=== PATIENT | female | born 1985 | race Caucasian/White ===

== ENCOUNTER → 2016-12-03 | Outpatient (CLI) | payer OTHER ==
[~2016-12-03] MED LIST: BCPILLS; CLXOPO; DRV100; LEVO25TA5 PO; OXYC-57 PO; PRENCAP38 PO
[2016-12-03 17:30] LABS: HEMATOCRIT 36.4 % (37-47)
[2016-12-03 17:59] LABS: GTGD 50 Grams
[2016-12-03 18:19] LABS: URINE APPEARANCE CLOUDY (CLEAR); URINE BILIRUBIN NEG (NEG); URINE COLOR YELLOW; URINE EPITHELIAL CELL AUTO >30 /lpf (0-5); URINE NITRITE NEG (NEG); URINE SPECIFIC GRAVITY 1.008 (1.000-1.030); UROBILINOGEN NEG (NEG)
[2016-12-03 18:22] LABS: MANUAL MICROSCOPIC REQUIRED? NO; REVIEW REQ? NO
== END | disposition home or self-care (01) ==
LOC: C.LAB1850 16:09
PROVIDERS: ATTEND Obstetrics & Gynecology
DX: O99.280 Endocrine, nutritional and metabolic diseases complicating pregnancy, unspecified trimester (principal)

== ENCOUNTER → 2016-12-11 | Outpatient (CLI) | payer OTHER | END | disposition home or self-care (01) | LOC: C.LAB1850 08:36 | PROVIDERS: ATTEND Obstetrics & Gynecology | DX: O28.1 Abnormal biochemical finding on antenatal screening of mother (principal) ==

== ENCOUNTER → 2017-02-03 | Outpatient (CLI) | payer OTHER | END | disposition home or self-care (01) | LOC: C.LABSPEC 11:25 | PROVIDERS: ATTEND Obstetrics & Gynecology | DX: O09.812 Supervision of pregnancy resulting from assisted reproductive technology, second trimester (principal) ==

== ENCOUNTER 2017-03-04 03:23 | Inpatient (IN) | payer OTHER ==
[~2017-03-04] VITALS: Ht 170.2 cm; Wt 71.0 kg
[~2017-03-04 03:23] MED LIST changes: -LEVO25TA5 PO; -PRENCAP38 PO
[2017-03-04] MEDS ORDERED: LACTATED RINGER'S 1000ML 1,000 ML IV PRN (03:43)
[2017-03-04 04:39] LABS: HEMATOCRIT 38.7 % (37-47); MEAN CELL VOLUME 86.4 fL (80-100); MEAN CORPUSCULAR HEMOGLOBIN 28.8 pg (25-34); MEAN CORPUSCULAR HGB CONC 33.3 g/dl (32-36); PLATELET COUNT 147 K/uL (130-400); RED BLOOD COUNT 4.48 M/uL (4.2-5.4); WHITE BLOOD COUNT 12.98 K/uL (4.8-10.8)
[2017-03-04] MEDS ORDERED: NALOXONE HCL INJ 1 MG in SODIUM CHLORIDE 0.9% 1000ML 1,000 ML IV PRN (04:46)
[2017-03-04] MEDS ORDERED: LACTATED RINGER'S 1000ML 500 ML IV PRN ×2 (04:46→08:06)
[2017-03-04] MEDS ORDERED: FENTANYL CITRATE INJ 50 MCG/1 ML 2 ML VIAL ONE (04:51)
[2017-03-04] MEDS ORDERED: FENTANYL 2MCG/ML ROPIV 1.25MG/ML 100ML BAG EPI ONE (04:51)
[2017-03-04] MEDS ORDERED: EpHEDrine SULFATE INJ 50 MG/ML AMP ONE (04:51)
[2017-03-04] MEDS ORDERED: BUPIVACAINE 0.25% 30 ML VIAL ONE (04:51)
[2017-03-04] MEDS: LACTATED RINGER'S 1000ML 1,000 ML IV SCH ×3 (04:56→15:11)
[2017-03-04] MEDS ORDERED: NALBUPHINE HCL INJ 10 MG/ML AMP IV PRN (05:00)
[2017-03-04] MEDS ORDERED: EpHEDrine SULFATE INJ 50 MG/ML AMP IV PRN (05:00)
[2017-03-04] MEDS ORDERED: ONDANSETRON INJ 2 MG/ML 2 ML VIAL IV PRN (05:00)
[2017-03-04] MEDS ORDERED: NALOXONE HCL INJ 0.4 MG/1 ML VIAL/CARP IV PRN (05:00)
[2017-03-04] MEDS ORDERED: DiphenhydrAMINE HCL 50 MG/ML VIAL IV PRN (05:00)
[2017-03-04] MEDS: FENTANYL 2MCG/ML ROPIV 1.25MG/ML 100ML BAG EPI PRN ×3 (05:14→12:23)
[2017-03-04] MEDS ORDERED: LEVO25TA5 PO (05:36)
[2017-03-04] MEDS ORDERED: PRENCAP38 PO (05:36)
[2017-03-04 05:42] VITALS: Ht 170.2 cm; Wt 71.0 kg
[2017-03-04] MEDS ORDERED: OXYTOCIN 30 UNITS/500ML NSS IV PRN ×2 (08:15→16:00)
[2017-03-04] MEDS ORDERED: LACTATED RINGER'S 1000ML 1,000 ML IV SCH (15:51)
[2017-03-04] MEDS ORDERED: MISOPROSTOL 200 MCG TAB ONE (15:51)
[2017-03-04] MEDS ORDERED: ACETAMINOPHEN/CODEINE 300/30MG TAB PO PRN ×2 (16:00)
[2017-03-04] MEDS ORDERED: LANOLIN OINT EXT PRN ×2 (16:00)
[2017-03-04] MEDS ORDERED: MISOPROSTOL 200 MCG TAB PR SCH (16:00)
[2017-03-04] MEDS ORDERED: ACETAMINOPHEN 325 MG TAB PO PRN (16:00)
[2017-03-04] MEDS ORDERED: BENZOCAINE 20% AER SPR 82.5 GM CAN EXT PRN (16:00)
[2017-03-04] MEDS ORDERED: HYDROCORTISONE ACETATE 25 MG SUPP PR PRN (16:00)
[2017-03-04] MEDS ORDERED: SUPERCREAM 0.870 % 15GM JAR EXT PRN (16:00)
[2017-03-04] MEDS ORDERED: DIPHTHERIA/TETANUS/PERTUSSIS 0.5 ML SYR/VIAL IM. ONE (16:00)
[2017-03-04] MEDS: IBUPROFEN 600 MG TAB PO PRN (17:28)
--- NOTE | 2017-03-04 17:54 | Anesthesia Procedure Note ---
Anesthesia Epidural Removal Nt Date & Time Mar 04, 2017 at 17:53 Vital Signs Pain Intensity: 0.0 Notes Mental Status: alert / awake / arousable, participated in evaluation Nausea / Vomiting: adequately controlled Pain: adequately controlled Airway Patency, RR, SpO2: stable & adequate BP & HR: stable & adequate Hydration State: stable & adequate Neuraxial Anesthesia: was administered Anesthetic Complications: no major complications apparent, pt satisfied with anesthetic care Epidural: removed without complications, with tip intact
--- NOTE | 2017-03-04 18:24 | DELIVERY SUMMARY ---
DATE OF OPERATION: 03/04/2017 PREOPERATIVE DIAGNOSES: 1. Mcbride intrauterine at term. 2. Onset of labor. 3. Group B strep negative. POSTOPERATIVE DIAGNOSES: Same. PROCEDURE: Spontaneous vaginal delivery and repair of second degree perineal laceration. SURGEON: Dr. Maldonado. NETWORK SECURITY CONSULTANT: None. ESTIMATED BLOOD LOSS: 600 mL. COMPLICATIONS: None. DISPOSITION: Stable to labor and delivery. DESCRIPTION: Nubia is a 32-year-old who presented for my partner Dr. Maurer and I assumed care of the patient at 08:30 in the morning on 03/04/2017. The patient was in labor and had already been artificially ruptured by Dr. Maurer. Pitocin had already been ordered and was started. The patient made progress from 7 cm on admission to completely dilated and then was urged to push with coaching from her nurse. She did bring the head to , at which point I was called for delivery. With delivery of the head, there was no nuchal cord. The shoulders delivered easily followed by the remainder of the infant, which was male and vigorous. The male infant was placed on the maternal abdomen. Cord was doubly clamped and cut by the father of the baby. Cord blood was collected and the placenta delivered spontaneously and was intact with a 3-vessel cord. A second degree perineal laceration, which included the skin of the anus but neither the rectal mucosa nor the anal sphincter were disrupted, was repaired in the normal fashion using Vicryl suture in a running locked manner with a crown suture for rebuilding the perineal body and the subcuticular finish on the perineal skin. The fundus was very firm and very far below the umbilicus to go to 4-5 cm; however, the bleeding was brisk and this continued despite fundal on bimanual massage, therefore 800 mcg of rectal Cytotec was given, which did bring about significant improvement in the patient's vaginal bleeding. At the present time, she is in stable condition with a firm fundus and minimal lochia and her infant is in the nursery for observation at present due to poor tone noted at the 5 minute . I attest to the content of the Intraoperative Record and any orders documented therein. Any exceptio ns are noted below.
[2017-03-04 19:01] LABS: BASO % 0.1 %; BASO ABS # 0.01 K/uL (0-0.2); COMPLETE YES; HEMATOCRIT 32.3 % (37-47); IG% 0.3 %; LYMPH % 8.1 %; LYMPH ABS # 1.47 K/uL (1.2-3.4); MEAN CELL VOLUME 86.6 fL (80-100); MEAN CORPUSCULAR HEMOGLOBIN 28.7 pg (25-34); MEAN CORPUSCULAR HGB CONC 33.1 g/dl (32-36); MEAN PLATELET VOLUME 12.2 fL (7.4-10.4); MONO % 8.2 %; NEUT % 83.3 %; PLATELET COUNT 145 K/uL (130-400); RED BLOOD COUNT 3.73 M/uL (4.2-5.4); WHITE BLOOD COUNT 18.11 K/uL (4.8-10.8)
[2017-03-04 19:21] LABS: BUN/CREATININE RATIO 9.1 (10-20); CALCIUM 8.2 mg/dl (8.5-10.1); CREATININE 1.4 mg/dl (0.60-1.20); POTASSIUM 4.1 mmol/L (3.5-5.1)
[2017-03-04 19:23] LABS: ALB/GLOB RATIO 0.6 (0.9-2)
[2017-03-04 20:00] VITALS: BP 118/73; PULSE 98; TEMP 36.8
[2017-03-04] MEDS: DOCUSATE SODIUM 100 MG CAP PO SCH (20:35)
[2017-03-05 00:15] VITALS: BP 105/70; PULSE 66; TEMP 36.6; O2SAT 99
[2017-03-05] MEDS: IBUPROFEN 600 MG TAB PO PRN ×3 (03:09→16:44)
[2017-03-05 03:15] VITALS: BP 125/85; PULSE 59; TEMP 36.5; O2SAT 98
--- NOTE | 2017-03-05 06:57 | Progress Note ---
Subjective Mar 05, 2017. Subjective conversation w/ patient, physical exam Ambulation: ambulating normally Voiding: no voiding problems Passing Gas: Yes Diet Tolerance: Regular Diet Lochia: Moderate Feeding Type: Breast Feeding Pain: 4/10 improves with medication Comment: Patient was seen at the bedside. No acute event overnight. Review of Systems Constitutional: No fever Respiratory: No cough, No shortness of breath Cardiac: No chest pain Breast: No breast lump Abdomen: No nausea, No pain, No vomiting Female : No dysuria denies headache Objective Vital Signs Date Time Temp Pulse Resp B/P Pulse Ox O2 Delivery O2 Flow Rate FiO2 03/05/17 03:15 36.5 59 20 125/85 98 Room Air 03/05/17 00:15 99 Room Air 03/05/17 00:15 36.6 66 18 105/70 99 Room Air 03/04/17 20:00 36.8 98 18 118/73 Room Air Physical Exam General Appearance: WELL-APPEARING, WD/WN Respiratory/Chest: chest non-tender, lungs clear, normal breath sounds Cardiovascular: regular rate, rhythm Abdomen: normal bowel sounds, non tender, soft Fundus: Firm, Relation to Umbilicus (1 cm below) Extremities: non-tender, no pedal edema, no calf tenderness Laboratory Results Last 24 Hours Test 03/04/17 18:51 03/05/17 04:44 White Blood Count 18.11 K/uL Red Blood Count 3.73 M/uL Hemoglobin 10.7 g/dL Hematocrit 32.3 % Mean Corpuscular Volume 86.6 fL Mean Corpuscular Hemoglobin 28.7 pg Mean Corpuscular Hemoglobin Concent 33.1 g/dl Platelet Count 145 K/uL Mean Platelet Volume 12.2 fL Neutrophils (%) (Auto) 83.3 % Lymphocytes (%) (Auto) 8.1 % Monocytes (%) (Auto) 8.2 % Eosinophils (%) (Auto) 0.0 % Basophils (%) (Auto) 0.1 % Neutrophils # (Auto) 15.09 K/uL Lymphocytes # (Auto) 1.47 K/uL Monocytes # (Auto) 1.49 K/uL Eosinophils # (Auto) 0.00 K/uL Basophils # (Auto) 0.01 K/uL RDW Standard Deviation 42.0 fL RDW Coefficient of Variation 13.3 % Immature Granulocyte % (Auto) 0.3 % Immature Granulocyte # (Auto) 0.05 K/uL Sodium Level 139 mmol/L Potassium Level 4.1 mmol/L Chloride Level 107 mmol/L Carbon Dioxide Level 23 mmol/L Anion Gap 9.0 mmol/L Blood Urea Nitrogen 13 mg/dl Creatinine 1.40 mg/dl Est Creatinine Clear Calc Drug Dose 56.1 ml/min Estimated GFR () 57.5 Estimated GFR (Non- 49.6 BUN/Creatinine Ratio 9.1 Random Glucose 126 mg/dl Calcium Level 8.2 mg/dl Total Bilirubin 1.0 mg/dl Aspartate Amino Transf (AST/SGOT) 28 U/L Alanine Aminotransferase (ALT/SGPT) 12 U/L Alkaline Phosphatase 138 U/L Total Protein 5.2 gm/dl Albumin 2.0 gm/dl Globulin 3.2 gm/dl Albumin/Globulin Ratio 0.6 Medications Current Inpatient Medications Medications (Trade) Dose Ordered Sig/Jennifer Route Start Time Stop Time Status Last Admin Dose Admin Lactated Ringer's (Lr 1000ml) 1,000 ml @ 125 mls/hr Q8H IV 03/04/17 15:51 04/03/17 15:50 Oxytocin (Pitocin IV) 30 units UD PRN IV 03/04/17 16:00 04/03/17 15:59 Benzocaine (Dermoplast Aero Spr) 1 appln PRN PRN EXT 03/04/17 16:00 04/03/17 15:59 03/04/17 20:35 1 APPLN Cocaine HCl (Supercream 0.870% Cr) BID PRN EXT 03/04/17 16:00 03/18/17 15:59 03/04/17 21:03 15 GM Hydrocortisone Acetate (Anusol Hc Supp) 25 mg BID PRN [place] 03/04/17 16:00 04/03/17 15:59 03/04/17 21:27 25 MG Lanolin (Lanolin Oint) PRN PRN EXT 03/04/17 16:00 04/03/17 15:59 Prenat Multivit/ [place]/Iron/Folic Ac ( Vitamin Tab) 1 tab DAILY PO 03/05/17 08:00 04/04/17 07:59 Ibuprofen (Motrin Tab) 600 mg Q4H PRN PO 03/04/17 16:00 04/03/17 15:59 03/05/17 03:09 600 MG Acetaminophen (Tylenol Tab) 650 mg Q6H PRN PO 03/04/17 16:00 04/03/17 15:59 Acetaminophen/ Codeine Phosphate (Tylenol w/ Codeine #3 Tab) 1 tab Q4H PRN PO 03/04/17 16:00 04/03/17 15:59 Acetaminophen/ Codeine Phosphate (Tylenol w/ Codeine #3 Tab) 2 tab Q4H PRN PO 03/04/17 16:00 04/03/17 15:59 Docusate Sodium (coLACE CAP) 100 mg BID PO 03/04/17 20:00 04/03/17 19:59 03/04/17 20:35 100 MG Assessment and Plan Post- Day#: 1 Continue Routine Care: A/P: This is a 32 y/o female, , s/p normal vaginal delivery. She is ambulating and clinically stable. Plan: - Vitals signs are reviewed and WNL (Tmax 36.8 ) - Last Hgb is 10.7 - Blood type O+, GBS neg, Rubella Immune - Routine care - Encourage ambulation, monitor and control pain with medication as needed , continue with regular diet as tolerated and monitor lochia - Stool softeners and sitz bath recommended - Encourage breast feeding and educate about breast feeding Resident Physician Supervision Note: I interviewed and examined the patient. Discussed with Dr. Abreu and agree with findings and plan as documented in the note. Any exceptions or clarifications are listed here: [None] Documented By: Oma Maldonado
[2017-03-05 07:22] LABS: HEMATOCRIT 29.3 % (37-47)
[2017-03-05 07:50] VITALS: BP 111/70; PULSE 79; TEMP 36.8; O2SAT 98
[2017-03-05] MEDS ORDERED: LEVOTHYROXINE 25 MCG TAB PO ONE (08:00)
[2017-03-05] MEDS: PRENATAL VITAMIN TAB PO SCH (09:39)
[2017-03-05] MEDS: DOCUSATE SODIUM 100 MG CAP PO SCH ×2 (09:40→20:24)
[2017-03-05 13:15] VITALS: BP 119/78; PULSE 65; TEMP 36.8; O2SAT 97
[2017-03-05 16:30] VITALS: BP 117/78; PULSE 65; TEMP 36.6; O2SAT 100
[2017-03-05 23:50] VITALS: BP 115/77; PULSE 73; TEMP 36.6
[2017-03-06] MEDS: IBUPROFEN 600 MG TAB PO PRN ×3 (03:09→13:10)
[2017-03-06] MEDS ORDERED: LEVOTHYROXINE 25 MCG TAB PO SCH (07:30)
[2017-03-06] MEDS: PRENATAL VITAMIN TAB PO SCH (07:46)
[2017-03-06] MEDS: DOCUSATE SODIUM 100 MG CAP PO SCH (07:46)
[2017-03-06 07:50] VITALS: BP 119/78; PULSE 64; TEMP 36.5; O2SAT 100
--- NOTE | 2017-03-06 08:26 | Discharge Instructions ---
Discharge Instructions Date of Service Mar 04, 2017. Admission Reason for Admission: Normal Labor Discharge Discharge Diagnosis / Problem: s/p normal vaginal delivery Discharge Goals Goal(s): Routine recovery after delivery Medications Continue Dispensed Medications: supercream, dermaplast, tucks, lansinoh Activity Recommendations Activity Limitations: as noted below . Instructions / Follow-Up Instructions / Follow-Up ACTIVITY RECOMMENDATIONS: * Gradual return to full activity over the next 2-3 weeks. * No lifting - nothing heavier than baby over the next 2-3 weeks. * Do not engage in vigorous exercise, sexual activity or sports until cleared by your physician. * Do not drive or operate any motorized equipment until cleared by your physician. * You may shower/bathe daily. MEDICATIONS: For discomfort or pain, you may use Acetaminophen (Tylenol), Ibuprofen (Advil), or Naproxen (Aleve) following the package directions. For constipation you may use Colace following the package directions. BREAST CARE: If you are not breast feeding: * Wear a supportive bra 24 hours a day for one to two weeks. * Avoid stimulating your breasts and nipples as much as possible during the first few weeks after delivery. * When taking a shower, have the warm water hit your back, not breasts. * When your breasts feel full, apply ice packs. Usually three to four times a day helps ease the discomfort. * Take a mild pain medication (Tylenol / Motrin) when you are uncomfortable. If breast feeding: * Use breast milk to lubricate nipples. Lansinoh cream may be used for sore nipples. You do not need to remove cream prior to breast feeding. If using a different brand of cream, check the label for directions regarding removal of cream prior to nursing. * Wear a supportive bra. * If having problems with breasts or breast feeding, call a surgical product sales consultant or your health care provider. EPISIOTOMY CARE: After delivery, if you have an episiotomy (stitches), the following steps will ease discomfort and aid healing. * For the first 24 hours after delivery, place ice packs next to your episiotomy to help reduce swelling. * After the first 24 hour-period, sitz baths, either portable or in the tub, are suggested. A shower with a shower arm sprayed over the episiotomy may be comforting. * Sonal care should be done after each voiding and bowel movement. Squirt warm water from a plastic bottle over the perineum (region of the body between the anus and urinary opening) and pat dry. * Use Dermoplast to ease discomfort. Shake container. Lynden directly over the episiotomy. Place a Tucks on a clean sanitary pad next to your episiotomy. SPECIAL CARE INSTRUCTIONS: When you are discharged from the hospital, it is important for you to follow the instructions listed below: * During the first week at home, you should be able to care for yourself and your baby. In addition, the usual light household activities are encouraged. * Limit your activities to the way you feel. Do not try to clean the house or move furniture. Be sensible. * If you actively engage in sports and have done so up until the time of your delivery, you may resume these activities as soon as you feel able. This may take up to one month or even longer. Use good judgment. * Continue to take your vitamins for at least six weeks after the of your baby. * Your diet need not be limited unless you were on a special diet before your delivery. Breast-feeding mothers need around 2500 calories per day and at least 64-80 ounces of fluid per day (8 to 10 glasses). * You should eat foods from the four major food groups. Crash diets or fad diets are to be avoided. Eating lean meats, fresh fruits and vegetables, low-fat dairy products, high fiber foods and a regular exercise program, will help you get back to your pre- weight without putting your health at risk. * Constipation is sometimes a problem after delivery. Take a mild laxative as needed. If breast feeding, Milk of Magnesia is acceptable to use. You may use a suppository or Fleets enema if no episiotomy. * A daily shower or tub bath is suggested. Be sure to thoroughly and gently dry the perineum. * A bloody vaginal discharge will usually continue until around four weeks post . A small amount of bleeding may continue for as long as six weeks. Vaginal discharge changes from the bright red bleeding after delivery to pink then brownish and finally yellowish-pink before becoming white and disappearing. * Bleeding may increase with activity. Your first period may come in 4-8 weeks. If you are breast feeding, your period may be delayed even longer. * [place] (sex) can begin whenever both you and your partner feel comfortable and do not have any form of genital infection. It is recommended that you wait at least six weeks for internal and external healing to occur. If you have questions, please talk to your health care practitioner. A condom should be used to prevent infection and . * Foreplay, gentle intercourse and lubrication is very important the first several times to prevent pain. A water-based lubricant such as K-Y jelly or Astroglide may be used. * If you have RH negative blood and your baby is RH positive, you will receive RHOGAM by injection prior to discharge. The nurse will give you a card to keep with you that has the date and place that you received RHOGAM after delivery. * During your care, you had a Rubella screen done to check for the presence of rubella antibodies in your blood. If your test was negative, you will receive a Rubella vaccine prior to discharge. This vaccine may cause a fever, soreness at the injection site and flu-like symptoms. If these symptoms persist, notify your health care practitioner. is not advised for one month after a Rubella vaccine. * Verbalizes understanding of car seat law as reviewed with patient nursing. * Car Seat hand-out given and reviewed with patient by nursing. * Shaken baby information reviewed with patient by nursing. Call you doctor if: * Heavy bleeding (saturating several pads an hour) or passing clots the size of your fist. * A fever >101 degrees F (38.3 degrees C) on two occasions four hours apart and /or chills. * Unusual pain in the pelvic or vaginal areas. * "Baby Blues" lasting longer than two weeks. If you have any questions or concerns, call your health care practitioner at . FOLLOW UP VISIT: * Please call the office at to schedule a 6 week examination. It is important you keep this appointment. It is important for you to make arrangements for either yearly or twice yearly check-ups thereafter. Current Hospital Diet Patient's current hospital diet: Regular OB Diet Discharge Diet Recommended Diet: Regular Diet Pending Studies Studies pending at discharge: no Medical Emergencies . Who to Call and When: Medical Emergencies: If at any time you feel your situation is an emergency, please call 911 immediately. . Non-Emergent Contact Non-Emergency issues call your: Hospitalist Nocturnist Physician Call Non-Emergent contact if: you have a fever, temperature is above 101 . . "Provider Documentation" section prepared by Wendy Abreu. . VTE Core Measure Inpt VTE Proph given/why not?: Treatment not indicated
--- NOTE | 2017-03-06 08:29 | Progress Note ---
Subjective Mar 06, 2017. Subjective conversation w/ patient, physical exam Ambulation: ambulating normally Voiding: no voiding problems Passing Gas: Yes Diet Tolerance: Regular Diet Lochia: Moderate Feeding Type: Breast Feeding Pain: denies pain Comment: Patient was seen at the bedside. No acute event overnight. Review of Systems Constitutional: No fever Respiratory: No cough, No shortness of breath Cardiac: No chest pain, No edema Breast: No breast lump Abdomen: No nausea, No pain, No vomiting Female : No dysuria Denies headache Objective Vital Signs Date Time Temp Pulse Resp B/P Pulse Ox O2 Delivery O2 Flow Rate FiO2 03/05/17 23:50 Room Air 03/05/17 23:50 36.6 73 20 115/77 Room Air 03/05/17 16:30 36.6 65 18 117/78 100 Room Air 03/05/17 16:30 100 Room Air 03/05/17 13:15 36.8 65 16 119/78 97 Room Air Physical Exam General Appearance: WELL-APPEARING, WD/WN Respiratory/Chest: chest non-tender, lungs clear, normal breath sounds Cardiovascular: regular rate, rhythm Abdomen: normal bowel sounds, non tender, soft Fundus: Firm, Relation to Umbilicus (2-3cm below ) Extremities: non-tender, no pedal edema, no calf tenderness Medications Current Inpatient Medications Medications (Trade) Dose Ordered Sig/Jennifer Route Start Time Stop Time Status Last Admin Dose Admin Lactated Ringer's (Lr 1000ml) 1,000 ml @ 125 mls/hr Q8H IV 03/04/17 15:51 04/03/17 15:50 Oxytocin (Pitocin IV) 30 units UD PRN IV 03/04/17 16:00 04/03/17 15:59 Benzocaine (Dermoplast Aero Spr) 1 appln PRN PRN EXT 03/04/17 16:00 04/03/17 15:59 03/04/17 20:35 1 APPLN Cocaine HCl (Supercream 0.870% Cr) BID PRN EXT 03/04/17 16:00 03/18/17 15:59 03/04/17 21:03 15 GM Hydrocortisone Acetate (Anusol Hc Supp) 25 mg BID PRN [place] 03/04/17 16:00 04/03/17 15:59 03/04/17 21:27 25 MG Lanolin (Lanolin Oint) PRN PRN EXT 03/04/17 16:00 04/03/17 15:59 Prenat Multivit/ Stem Threshing Machine Operator/Iron/Folic Ac ( Vitamin Tab) 1 tab DAILY PO 03/05/17 08:00 04/04/17 07:59 03/06/17 07:46 1 TAB Ibuprofen (Motrin Tab) 600 mg Q4H PRN PO 03/04/17 16:00 04/03/17 15:59 03/06/17 07:47 600 MG Acetaminophen (Tylenol Tab) 650 mg Q6H PRN PO 03/04/17 16:00 04/03/17 15:59 Acetaminophen/ Codeine Phosphate (Tylenol w/ Codeine #3 Tab) 1 tab Q4H PRN PO 03/04/17 16:00 04/03/17 15:59 Acetaminophen/ Codeine Phosphate (Tylenol w/ Codeine #3 Tab) 2 tab Q4H PRN PO 03/04/17 16:00 04/03/17 15:59 Docusate Sodium (coLACE CAP) 100 mg BID PO 03/04/17 20:00 04/03/17 19:59 03/06/17 07:46 100 MG Levothyroxine Sodium (Synthroid Tab) 25 mcg DAILYBB PO 03/06/17 07:30 04/05/17 07:29 03/06/17 07:45 25 MCG Assessment and Plan Post- Day#: 2 Continue Routine Care: A/P: This is a 32 y/o female, , s/p normal vaginal delivery. She is ambulating and clinically stable to discharge. - Vital signs are reviewed and WNL (Tmax 36.7 ) - Last Hgb 9.5 - Blood type O+, GBS neg, Rubella Immune - No signs of depression. - Routine care - Discussed resting, feeding, pain control, mastitis, control, follow up in 6 weeks and reasons to call sooner, if necessary. - Continue with pain medication as needed, and continue vitamins. - Encourage breast feeding and educate about breast feeding - Patient understands and keen for home. - Plan to discharge home Resident Physician Supervision Note: I interviewed and examined the patient. Discussed with Dr. Abreu and agree with findings and plan as documented in the note. Any exceptions or clarifications are listed here: Doing well, plan d/c. Instructions given. Documented By: Frieda Navarro
== END 2017-03-06 13:30 | disposition home or self-care (01) | DRG 774 ==
LOC: C.OPB 03:23 → C.LD 03:24 → C.OPB 03:52 → C.OBG 19:41
PROVIDERS: ADMIT Obstetrics & Gynecology; ATTEND Obstetrics & Gynecology
PROC: 0KQM0ZZ Repair Perineum Muscle, Open Approach (ICD-10-PCS; principal; 2017-03-04)
PROC: 10E0XZZ Delivery of Products of Conception, External Approach (ICD-10-PCS; principal; 2017-03-04)
DX: O48.0 Post-term pregnancy (principal); O67.9 Intrapartum hemorrhage, unspecified; O70.1 Second degree perineal laceration during delivery; O26.893 Other specified pregnancy related conditions, third trimester; O99.284 Endocrine, nutritional and metabolic diseases complicating childbirth; E03.9 Hypothyroidism, unspecified; Z37.0 Single live birth; Z3A.40 40 weeks gestation of pregnancy